=== PATIENT | female | born 1955 | race Caucasian/White ===

== ENCOUNTER 2020-02-12 10:06 | Outpatient (CLI) | payer OTHER, SELFPAY ==
[2020-02-12 10:29] LABS: Hematocrit 40.7 % (37.0-47.0); Hemoglobin 13.6 g/dL (12.0-15.0); Mean Corpuscular HGB Conc 33.4 g/dl (32-36); Mean Corpuscular Volume 80.8 fl (80-100); Mean Platelet Volume 8.5 fl (7.4-10.4); Platelet Count Result 450 k/mm3 (150-375); Red Blood Count 5.04 M/mm3 (4.2-5.4); Red Cell Distribution Width 19.3 % (11.5-14.5); White Blood Count 6.9 K/mm3 (4.5-10.0)
[2020-02-12 11:28] LABS: Add Urine Microscopic? YES; Appearance Urine Clear (Clear); Bilirubin Urine Negative (Negative); Blood Urine Negative (Negative); Calcium Oxalate Crystals Urine Present /hpf; Color Urine Amber (Yellow); Glucose Urine UA Negative (Negative); Ketones Urine Negative (Negative); Leukocyte Esterase Ur 2+ LEU/UL (Negative); Mucus Urine Heavy /lpf; Nitrate Urine Negative (Negative); Protein Urine 1+ mg/dL (Negative); RBC Urine 0-2 /hpf (0-2); Specific Grav Ur 1.026 (1.001-1.035); Squamous Epithelial Cell Urine Few /hpf (Few); WBC Urine 31-50 /hpf
[2020-02-12 11:30] LABS: Alanine Aminotransferase 12 U/L (4-35); Albumin Level 3.8 g/dL (3.5-5.1); Alkaline Phosphatase 151 U/L (38-126); Anion Gap 9 mmol/L (8-16); Aspartate Amino Transferase 24 U/L (14-36); Bilirubin,Total 0.7 mg/dL (0.2-1.3); Blood Urea Nitrogen 11 mg/dL (7-17); CRP 1.8 mg/dL (<1.0); Calcium 9.4 mg/dL (8.4-10.2); Carbon Dioxide 24 mmol/L (22-30); Chloride 97 mmol/L (98-107); Estimated Glomerular Filt Rate > 60; Glucose 117 mg/dL (65-105); Potassium 4.4 mmol/L (3.4-5.0); Sodium 130 mmol/L (137-145)
[2020-02-12 11:44] LABS: Erythrocyte Sedimentation Rate 23 mm/hr (0-20)
== END 2020-02-12 10:07 | disposition home or self-care (01) ==
LOC: ANHLAB 10:10
PROVIDERS: Visit Provider Internal Medicine
DX: M19.90 Unspecified osteoarthritis, unspecified site (principal); J84.9 Interstitial pulmonary disease, unspecified
CPT/HCPCS: 36415; 80053; 81001; 85027; 85652; 86140; 87077; 87086; 87088

== ENCOUNTER 2020-02-22 09:59 | Outpatient (CLI) | payer OTHER, SELFPAY ==
--- NOTE | 2020-02-27 23:34 | WPDPFTINT ---
PFT Interpretation PFT Interpretation: DOS: 02/22/2020 REQUESTING: Dr Alfred REASON FOR TESTING: COPD PULMONARY FUNCTION TESTS Results are reproducible. Spirometry: FEV1 70%, mildly decreased. FVC 100%, normal. FEV1% is decreased, consistent with airflow obstruction. GOU50-14% is severely decreased. There is no change with bronchodilator. Lung volumes: TLC 112%, normal. RV is 132%, mild air trapping. Increased airway resistance. Diffusion: DLCO 55% moderately decreased. Flow volume loop: Scooping of the expiratory limb. IMPRESSION: Mild obstructive ventilatory impairment, mild air trapping, moderate diffusion impairment without change after bronchodilator administration. Lack of response should not preclude use if clinically indicated. Jolene Alfred MD
== END 2020-02-22 10:00 | disposition home or self-care (01) ==
PROVIDERS: Visit Provider Internal Medicine Critical Care Medicine
DX: J44.9 Chronic obstructive pulmonary disease, unspecified (principal); M34.9 Systemic sclerosis, unspecified; R94.2 Abnormal results of pulmonary function studies
CPT/HCPCS: 94060; 94726; 94729

== ENCOUNTER 2020-03-31 08:49 | Outpatient (CLI) | payer OTHER, SELFPAY ==
--- NOTE | ~2020-03-31 | CT_ITS ---
EXAMINATION: CT chest w con DATE: 03/31/2020 09:49 INDICATION: Interstitial pulmonary disease. TECHNIQUE: Computed tomography (CT) of the chest was performed with 75 cc Omnipaque 350 intravenous c ontrast. The dose-length product was 309.67 mGy-cm. Automated exposure control and iterative reconstr uction technique were employed. COMPARISON: None FINDINGS: Mildly enlarged mediastinal and right hilar lymph nodes. For instance right hilar lymph nod e measures 11 mm an AP window lymph node measures 10 mm. No significant pleural or pericardial effusi on. No evidence for aortic aneurysm or dissection. Heart size normal. Thyroid gland is unremarkable. No large central pulmonary embolism. No significant pleural or pericardial effusion. There is moderat e emphysema. No endobronchial lesions. There are coarse interstitial changes with areas of interlobul ar septal thickening predominantly affecting the lower lobes. There is left lower lobe atelectasis/sc arring. IMPRESSION: 1. Peripheral interstitial lung disease primarily affecting the lower lobes in a pattern consistent w ith usual interstitial pneumonia. 2: Mildly enlarged mediastinal and right hilar lymphadenopathy, likely reactive. Reviewed, dictated and finalized at location A. IMPRESSION: 1. Peripheral interstitial lung disease primarily affecting the lower lobes in a pattern consistent with usual interstitial pneumonia. 2: Mildly enlarged mediastinal and right hilar lymphadenopathy, likely reactiv e.
[2020-03-31 09:41] LABS: Estimated Glomerular Filt Rate > 60
== END 2020-03-31 08:50 | disposition home or self-care (01) ==
PROVIDERS: Visit Provider Internal Medicine Critical Care Medicine
DX: J84.9 Interstitial pulmonary disease, unspecified (principal); R91.1 Solitary pulmonary nodule; R59.0 Localized enlarged lymph nodes
CPT/HCPCS: 71260; Q9967

== ENCOUNTER 2020-04-09 11:32 | Outpatient (CLI) | payer OTHER, SELFPAY ==
[2020-04-09 12:03] LABS: Basophils Absolute Auto 0.1 K/mm3 (0.0-0.1); Basophils Percent Auto 1.1 % (0.2-1.2); Eosinophils Absolute Auto 0.1 K/mm3 (0-0.3); Eosinophils Percent Auto 2.4 % (0-4.4); Hematocrit 42.8 % (37.0-47.0); Hemoglobin 14.3 g/dL (12.0-15.0); Immature Granulocyte Absolute 0.02 K/mm3 (0.00-0.031); Immature Granulocyte Percent A 0.4 % (0-0.5); Lymphocytes Absolute Auto 0.88 K/mm3 (0.9-3.2); Lymphocytes Percent Auto 16.3 % (18.3-44.2); Mean Corpuscular HGB Conc 33.4 g/dl (32-36); Mean Corpuscular Hemoglobin 27.4 pg (26-34); Mean Corpuscular Volume 82.1 fl (80-100); Mean Platelet Volume 8.2 fl (7.4-10.4); Monocytes Absolute Auto 0.9 K/mm3 (0.1-0.6); Monocytes Percent Auto 16.3 % (2.6-8.5); Neutrophils Absolute Auto 3.4 K/mm3 (1.3-6.7); Neutrophils Percent Auto 63.5 % (45.5-73.1); Platelet Count Result 363 k/mm3 (150-375); Red Blood Count 5.21 M/mm3 (4.2-5.4); Red Cell Distribution Width 16.1 % (11.5-14.5); White Blood Count 5.4 K/mm3 (4.5-10.0)
[2020-04-09 14:48] LABS: Alanine Aminotransferase 12 U/L (4-35); Albumin Level 3.6 g/dL (3.5-5.1); Alkaline Phosphatase 149 U/L (38-126); Anion Gap 5 mmol/L (8-16); Aspartate Amino Transferase 25 U/L (14-36); Bilirubin,Total 0.6 mg/dL (0.2-1.3); Blood Urea Nitrogen 12 mg/dL (7-17); CRP 2.3 mg/dL (<1.0); Calcium 9.2 mg/dL (8.4-10.2); Carbon Dioxide 30 mmol/L (22-30); Chloride 94 mmol/L (98-107); Estimated Glomerular Filt Rate > 60; Glucose 120 mg/dL (65-105); Potassium 4.2 mmol/L (3.4-5.0); Sodium 129 mmol/L (137-145)
[2020-04-09 15:20] LABS: Add Urine Microscopic? YES; Appearance Urine Cloudy (Clear); Bacteria Urine Trace /hpf; Bilirubin Urine Negative (Negative); Blood Urine Negative (Negative); Color Urine Yellow (Yellow); Glucose Urine UA Negative (Negative); Ketones Urine Negative (Negative); Leukocyte Esterase Ur 1+ LEU/UL (Negative); Mucus Urine Few /lpf; Nitrate Urine Negative (Negative); Protein Urine 1+ mg/dL (Negative); Specific Grav Ur 1.019 (1.001-1.035); Squamous Epithelial Cell Urine Occasional /hpf (Few); Urobilinogen Urine Negative mg/dL (<2.0); WBC Urine 31-50 /hpf
[2020-04-09 15:45] LABS: Erythrocyte Sedimentation Rate 10 mm/hr (0-20)
== END 2020-04-09 11:33 | disposition home or self-care (01) ==
PROVIDERS: Visit Provider Internal Medicine
DX: M34.9 Systemic sclerosis, unspecified (principal); M19.90 Unspecified osteoarthritis, unspecified site
CPT/HCPCS: 36415; 80053; 81001; 85025; 85652; 86140; 87086; 87088

== ENCOUNTER 2020-05-17 11:21 | Outpatient (CLI) | payer OTHER, SELFPAY ==
[2020-05-17 11:42] LABS: Basophils Absolute Auto 0.1 K/mm3 (0.0-0.1); Basophils Percent Auto 0.8 % (0.2-1.2); Eosinophils Absolute Auto 0.2 K/mm3 (0-0.3); Eosinophils Percent Auto 2.8 % (0-4.4); Hematocrit 47.3 % (37.0-47.0); Hemoglobin 15.5 g/dL (12.0-15.0); Immature Granulocyte Absolute 0.04 K/mm3 (0.00-0.031); Immature Granulocyte Percent A 0.6 % (0-0.5); Lymphocytes Absolute Auto 1.39 K/mm3 (0.9-3.2); Lymphocytes Percent Auto 19.5 % (18.3-44.2); Mean Corpuscular HGB Conc 32.8 g/dl (32-36); Mean Corpuscular Hemoglobin 27.5 pg (26-34); Mean Corpuscular Volume 83.9 fl (80-100); Mean Platelet Volume 8.5 fl (7.4-10.4); Monocytes Absolute Auto 0.7 K/mm3 (0.1-0.6); Neutrophils Absolute Auto 4.7 K/mm3 (1.3-6.7); Neutrophils Percent Auto 66.3 % (45.5-73.1); Platelet Count Result 433 k/mm3 (150-375); Red Blood Count 5.64 M/mm3 (4.2-5.4); White Blood Count 7.1 K/mm3 (4.5-10.0)
[2020-05-17 12:43] LABS: Erythrocyte Sedimentation Rate 8 mm/hr (0-20)
[2020-05-17 12:54] LABS: Alanine Aminotransferase 13 U/L (4-35); Albumin Level 3.7 g/dL (3.5-5.1); Alkaline Phosphatase 121 U/L (38-126); Anion Gap 9 mmol/L (8-16); Aspartate Amino Transferase 32 U/L (14-36); Bilirubin,Total 0.7 mg/dL (0.2-1.3); Blood Urea Nitrogen 11 mg/dL (7-17); CRP 2.3 mg/dL (<1.0); Calcium 9.5 mg/dL (8.4-10.2); Carbon Dioxide 24 mmol/L (22-30); Chloride 96 mmol/L (98-107); Estimated Glomerular Filt Rate > 60; Glucose 112 mg/dL (65-105); Potassium 4.5 mmol/L (3.4-5.0); Sodium 129 mmol/L (137-145)
== END 2020-05-17 11:22 | disposition home or self-care (01) ==
PROVIDERS: Visit Provider Internal Medicine
DX: M34.9 Systemic sclerosis, unspecified (principal); J84.9 Interstitial pulmonary disease, unspecified; M19.90 Unspecified osteoarthritis, unspecified site
CPT/HCPCS: 36415; 80053; 85025; 85652; 86140

== ENCOUNTER 2020-05-24 11:30 | Outpatient (CLI) | payer OTHER, SELFPAY ==
[2020-05-24 13:22] LABS: Add Urine Microscopic? YES; Appearance Urine Clear (Clear); Bilirubin Urine Negative (Negative); Blood Urine Negative (Negative); Color Urine Yellow (Yellow); Glucose Urine UA Negative (Negative); Ketones Urine Negative (Negative); Leukocyte Esterase Ur Trace LEU/UL (Negative); Nitrate Urine Negative (Negative); Protein Urine Negative (Negative); RBC Urine 0-2 /hpf (0-2); Squamous Epithelial Cell Urine Rare /hpf (Few); Urobilinogen Urine Negative mg/dL (<2.0)
== END 2020-05-24 11:31 | disposition home or self-care (01) ==
LOC: ANHLAB 11:33
PROVIDERS: Visit Provider Internal Medicine
DX: M34.9 Systemic sclerosis, unspecified (principal); J84.9 Interstitial pulmonary disease, unspecified
CPT/HCPCS: 81001

== ENCOUNTER 2021-04-18 10:31 | Outpatient (CLI) | payer MEDICARE, SELFPAY ==
[2021-04-18 11:01] LABS: Hematocrit 37.9 % (37.0-47.0); Hemoglobin 12.7 g/dL (12.0-15.0); Mean Corpuscular HGB Conc 33.5 g/dl (32-36); Mean Corpuscular Hemoglobin 30.4 pg (26-34); Mean Corpuscular Volume 90.7 fl (80-100); Mean Platelet Volume 8.3 fl (7.4-10.4); Platelet Count Result 417 k/mm3 (150-375); Red Blood Count 4.18 M/mm3 (4.2-5.4); Red Cell Distribution Width 15.1 % (11.5-14.5); White Blood Count 5.4 K/mm3 (4.5-10.0)
[2021-04-18 12:48] LABS: Alanine Aminotransferase 10 U/L (4-35); Albumin Level 3.8 g/dL (3.5-5.1); Alkaline Phosphatase 126 U/L (38-126); Anion Gap 7 mmol/L (8-16); Aspartate Amino Transferase 22 U/L (14-36); Bilirubin,Total 0.4 mg/dL (0.2-1.3); Blood Urea Nitrogen 6 mg/dL (7-17); CRP 1.7 mg/dL (<1.0); Calcium 9.1 mg/dL (8.4-10.2); Carbon Dioxide 25 mmol/L (22-30); Chloride 94 mmol/L (98-107); Estimated Glomerular Filt Rate > 60; Glucose 112 mg/dL (65-110); Potassium 4.2 mmol/L (3.4-5.0); Sodium 126 mmol/L (137-145)
[2021-04-18 13:00] LABS: Add Urine Microscopic? YES; Appearance Urine Clear (Clear); Bacteria Urine Trace /hpf; Bilirubin Urine Negative (Negative); Blood Urine Negative (Negative); Color Urine Yellow (Yellow); Glucose Urine UA Negative (Negative); Ketones Urine Negative (Negative); Leukocyte Esterase Ur 3+ LEU/UL (Negative); Mucus Urine Rare /lpf; Nitrate Urine Negative (Negative); Protein Urine Negative (Negative); RBC Urine 0-2 /hpf (0-2); Specific Grav Ur 1.009 (1.001-1.035); Squamous Epithelial Cell Urine Rare /hpf (Few); Urobilinogen Urine Negative mg/dL (<2.0)
[2021-04-18 14:00] LABS: Erythrocyte Sedimentation Rate 24 mm/hr (0-20)
[2021-04-18 14:02] LABS: Creatinine Urine 57.4 mg/dL; Total Protein Urine Random 17 mg/dL
== END 2021-04-18 10:32 | disposition home or self-care (01) ==
LOC: ANHLAB 10:33
PROVIDERS: Visit Provider Internal Medicine
DX: J84.9 Interstitial pulmonary disease, unspecified (principal); M34.9 Systemic sclerosis, unspecified; M19.90 Unspecified osteoarthritis, unspecified site
CPT/HCPCS: 36415; 80053; 81001; 82570; 84156; 85027; 85652; 86140; 87086; 87088